=== PATIENT | female | born 1945 | race Asian ===

== ENCOUNTER 2023-07-21 09:13 | Inpatient (IN) | payer MEDICARE, MEDICAID ==
[2023-07-21] MEDS ORDERED: DOPamine/D5W 400 mg/250 ml PREMIX ONE (09:16)
[2023-07-21] MEDS ORDERED: Sodium Bicarb 50 MEQ/50 ML Abboject 8.4% SYRINGE ONE ×3 (09:16→12:02)
[2023-07-21] MEDS ORDERED: EPINEPHrine 1 MG/10 ML Abboject SYRINGE ONE (09:16)
[2023-07-21] MEDS ORDERED: Calcium Chloride 1 GM/10 ML Abboject SYRINGE ONE ×2 (09:16→10:33)
[2023-07-21] MEDS ORDERED: Atropine Sulfate 1 mg/10 ml Syringe ONE (09:16)
[2023-07-21] MEDS ORDERED: NOREPINEPHRINE 8 MG/250 ML-D5W 250 ML ONE (09:27)
[2023-07-21 10:17] LABS: Actual Bicarbonate (HCO3a) 16.2 mEq/L (22-28); Analyzer IN Cardio ER; Base Excess (BEa) -8.1 mEq/L (-2.0 to +3.0); Calcium, Ionized (arterial) 1.26 mmol/L (1.12-1.30); Carboxyhemoglobin (COHb) 0.3 gm% (0.0-3.0); Hematocrit-ABG 27 % (36.0-47.0); Hemoglobin (Hb) 9.1 g/dL (12.0-16.0); O2 Tension (PaO2), arterial 75.6 mmHg (> 70.0); Potassium - ABG Lab 5.67 mmol/L (3.70-5.30); pH, Arterial 7.365 (7.35-7.45)
[2023-07-21 10:19] LABS: Puncture Site A-Line
[2023-07-21 10:19] LABS: Acetaminophen Less than 10 mcg/mL (10.0-30.0); Alcohol Less than 10.0 mg/dL (Less than 10); Salicylate Less than 8.0 mg/dL (15.0-30.0)
[2023-07-21 10:23] LABS: ALT (SGPT) 36 U/L (8-55); AST (SGOT) 29 U/L (5-34); Albumin 2.5 g/dL (3.4-4.8); Alkaline Phosphatase 48 U/L (40-110); Anion Gap 16 mmol/L (10-20); BUN (Urea Nitrogen) 67 mg/dL (9.8-20.1); Bilirubin, Total 0.3 mg/dL (0.2-1.2); Calc. Creatinine Clearance 0 mL/min (70-130); Calcium 6.7 mg/dL (7.8-10.44); Carbon Dioxide 10 mmol/L (23-31); Chloride 99 mmol/L (98-107); Estimated GFR 10; Globulin 2.3 g/dL (2.4-3.5); Glucose 315 mg/dL (83-110); Magnesium 1.8 mg/dL (1.6-2.6); Potassium 6.2 mmol/L (3.5-5.1); Protein, Total 4.8 g/dL (5.8-8.1); Sodium 119 mmol/L (136-145)
[2023-07-21] MEDS ORDERED: Albuterol 2.5 MG (3 mL) NEB ONE (10:45)
[2023-07-21 10:46] LABS: #Basophils Less than 0.03 10x3/uL (0.0-0.2); %Basophils 0.1 % (0.0-1.0); %Eosinophils 0.8 % (0.0-10.0); %Monocytes 6.5 % (0.0-10.0); %Neutrophils 76.1 % (42.0-75.0); Hematocrit 24.9 % (36.0-47.0); Hemoglobin 8.7 g/dL (12.0-16.0); Mean Corpuscular HGB CONC 34.9 g/dL (32.0-36.0); Mean Corpuscular Hemoglobin 31.9 pg (27.0-31.0); Mean Corpuscular Volume 91.2 fL (78.0-98.0); Mean Platelet Volume 9.7 fL (7.4-10.4); Platelet Count 160 10x3/uL (130-400); Red Blood Cell (RBC) Count 2.73 mill/uL (4.20-5.40)
[2023-07-21 11:12] LABS: Digoxin Less than 0.19 ng/mL (0.8-2.0); INR-International Normal Ratio 1.3; PTT 30.7 sec (22.9-36.1); Prothrombin Time 16.1 sec (12.0-14.7)
[2023-07-21] MEDS ORDERED: Insulin Regular, Human 100 UNIT/ML 10 ML VIAL ONE (11:32)
[2023-07-21 11:38] LABS: Troponin I 0.044 ng/mL (< 0.028)
[2023-07-21 11:56] LABS: Bacteria/HPF 2+ HPF (None Seen); Bilirubin Negative (Negative); Blood, Urine 1+ (Negative); CAUTI Indications for Culture Alt mental st,lethar; Clarity Turbid (Clear); Glucose, Urine (Dipstick) Greater than 1000 mg/dL (Negative); Ketone, Urine Negative (Negative); Leukocyte 500 Leu/uL (Negative); Nitrite Negative (Negative); Protein, Urine (Dipstick) 200 mg/dL (Neg-Trace); Specific Gravity, Urine 1.013 (1.002-1.036); Squamous Epithelial 0-3 HPF (0-3); Urobilinogen Normal mg/dL (Less than 2); WBC/HPF Greater than 50 HPF (0-3); pH, Urine 6.5 (5.0-9.0)
[2023-07-21] MEDS ORDERED: Furosemide 40 MG (4 mL) VIAL ONE (11:59)
[2023-07-21 12:01] LABS: Analyzer IN Cardio ER; Base Excess (BEa) -5.6 mEq/L (-2.0 to +3.0); CO2 Tension 20.5 mmHg (35.0-45.0); Calcium, Ionized (arterial) 1.27 mmol/L (1.12-1.30); Carboxyhemoglobin (COHb) 0.3 gm% (0.0-3.0); Hematocrit-ABG 29 % (36.0-47.0); Hemoglobin (Hb) 9.7 g/dL (12.0-16.0); O2 Tension (PaO2), arterial 179.7 mmHg (> 70.0); Potassium - ABG Lab 4.65 mmol/L (3.70-5.30)
[2023-07-21 12:01] LABS: Amphetamine Not Detected (NotDetected); Barbiturates Screen Not Detected (NotDetected); Benzodiazepine Screen Not Detected (NotDetected); Cocaine Metabolite Screen Not Detected (NotDetected); Methadone Not Detected (NotDetected); Methamphetamine Not Detected (NotDetected); Opiate Screen Not Detected (NotDetected); Oxycodone Screen Not Detected (NotDetected); Phencyclidine (PCP) Not Detected (NotDetected); THC/Cannabinoid Screen Not Detected (NotDetected); Tricyclic Screen Not Detected (NotDetected); Urine Culture Reflex Yes Yes
[2023-07-21] MEDS ORDERED: Sodium Bicarb 50 mEq/50 ML VIAL ONE (12:09)
[2023-07-21 12:33] LABS: Influenza A by NAA Not Detected (NotDetected); Influenza B by NAA Not Detected (NotDetected); SARS-CoV-2 NAA Rapid Test Not Detected (NotDetected)
[2023-07-21 13:00] LABS: ALT (SGPT) 146 U/L (8-55); AST (SGOT) 183 U/L (5-34); Albumin 2.9 g/dL (3.4-4.8); Alkaline Phosphatase 73 U/L (40-110); Anion Gap 18 mmol/L (10-20); BUN (Urea Nitrogen) 66 mg/dL (9.8-20.1); Bilirubin, Total 0.6 mg/dL (0.2-1.2); Calc. Creatinine Clearance 0 mL/min (70-130); Calcium 9.9 mg/dL (7.8-10.44); Carbon Dioxide 15 mmol/L (23-31); Chloride 99 mmol/L (98-107); Estimated GFR 11; Globulin 2.7 g/dL (2.4-3.5); Glucose 278 mg/dL (83-110); Potassium 4.5 mmol/L (3.5-5.1); Protein, Total 5.6 g/dL (5.8-8.1); Sodium 127 mmol/L (136-145)
[2023-07-21] MEDS ORDERED: Dextrose 5% in Water 1,000 ML IV PRN (13:26)
[2023-07-21] MEDS ORDERED: Dextrose 50% Abboject 50 ML SYRINGE SLOW IVP PRN (13:26)
[2023-07-21] MEDS ORDERED: Glucagon 1 MG/ML KIT IM PRN (13:26)
[2023-07-21] MEDS ORDERED: Ipratropium/Albuterol 3 ML NEB NEB PRN (13:27)
[2023-07-21] MEDS ORDERED: Ventilator Sedation Protocol 1 EACH FS SCH (13:30)
[2023-07-21] MEDS ORDERED: DISCONTINUE PREVIOUS NARCOTIC PAIN MEDICATIONS AND BENZODIAZEPINES FS SCH (14:00)
[2023-07-21] MEDS: Meropenem 1 GM in Sodium Chloride 0.9% 100 ML IVPB SCH (14:00)
[2023-07-21] MEDS ORDERED: Propofol BOLUS 1,000 MG/100 ML VIAL IV PRN (14:00)
[2023-07-21] MEDS ORDERED: Fentanyl BOLUS 250 ML IVPB PRN (14:00)
[2023-07-21] MEDS ORDERED: Lorazepam 2 MG/ML VIAL SLOW IVP PRN (14:00)
[2023-07-21] MEDS: Albumin 25% 25 GM (100 mL) BOT IVPB SCH (14:11)
[2023-07-21] MEDS: Pantoprazole 40 MG VIAL IVP SCH ×2 (14:12→20:03)
[2023-07-21] MEDS: Lactated Ringer's 1,000 ML IV SCH (14:14)
[2023-07-21 14:16] LABS: Lactic Acid 2.6 mmol/L (0.5-2.2)
[2023-07-21] MEDS: Fentanyl CADD 100 ML IV SCH (15:34)
[2023-07-21] MEDS: Propofol 1,000 MG/100 ML VIAL IV PRN (18:04)
[2023-07-21 21:39] LABS: Anion Gap 16 mmol/L (10-20); BUN (Urea Nitrogen) 62 mg/dL (9.8-20.1); Calc. Creatinine Clearance 10 mL/min (70-130); Calcium 8.8 mg/dL (7.8-10.44); Carbon Dioxide 19 mmol/L (23-31); Chloride 98 mmol/L (98-107); Estimated GFR 11; Glucose 187 mg/dL (83-110); Potassium 5.2 mmol/L (3.5-5.1); Sodium 128 mmol/L (136-145)
[2023-07-21 21:46] LABS: Troponin I 0.114 ng/mL (< 0.028)
[2023-07-21] MEDS: EPOETIN ALFA-EPBX (ESRD) 10,000 UNITS/ML VIAL SC SCH (22:12)
[2023-07-22 04:17] LABS: #Basophils Less than 0.03 10x3/uL (0.0-0.2); #Eosinphils Less than 0.03 10x3/uL (0.0-0.7); %Basophils 0.1 % (0.0-1.0); %Eosinophils 0.1 % (0.0-10.0); %Lymphocytes 9.8 % (21.0-51.0); %Monocytes 7.2 % (0.0-10.0); %Neutrophils 82.4 % (42.0-75.0); Hematocrit 19.7 % (36.0-47.0); Hemoglobin 6.9 g/dL (12.0-16.0); Mean Corpuscular Hemoglobin 31.9 pg (27.0-31.0); Mean Corpuscular Volume 91.2 fL (78.0-98.0); Mean Platelet Volume 9.1 fL (7.4-10.4); Platelet Count 131 10x3/uL (130-400); RBC Distribution Width 14.1 % (11.5-14.5); Red Blood Cell (RBC) Count 2.16 mill/uL (4.20-5.40)
[2023-07-22 05:19] LABS: ALT (SGPT) 73 U/L (8-55); AST (SGOT) 47 U/L (5-34); Albumin 3.6 g/dL (3.4-4.8); Alkaline Phosphatase 43 U/L (40-110); Anion Gap 18 mmol/L (10-20); BUN (Urea Nitrogen) 63 mg/dL (9.8-20.1); Bilirubin, Total 0.5 mg/dL (0.2-1.2); Calc. Creatinine Clearance 10 mL/min (70-130); Calcium 8.4 mg/dL (7.8-10.44); Carbon Dioxide 20 mmol/L (23-31); Chloride 96 mmol/L (98-107); Estimated GFR 11; Globulin 1.7 g/dL (2.4-3.5); Glucose 124 mg/dL (83-110); Protein, Total 5.3 g/dL (5.8-8.1); Sodium 129 mmol/L (136-145)
[2023-07-22 07:35] LABS: Actual Bicarbonate (HCO3a) 21.8 mEq/L (22-28); Base Excess (BEa) -3.4 mEq/L (-2.0 to +3.0); CO2 Tension 40.1 mmHg (35.0-45.0); Calcium, Ionized (arterial) 1.07 mmol/L (1.12-1.30); Carboxyhemoglobin (COHb) 0.1 gm% (0.0-3.0); Hematocrit-ABG 23 % (36.0-47.0); Hemoglobin (Hb) 7.7 g/dL (12.0-16.0); O2 Tension (PaO2), arterial 67.6 mmHg (> 70.0); Potassium - ABG Lab 4.88 mmol/L (3.70-5.30); pH, Arterial 7.354 (7.35-7.45)
[2023-07-22 07:39] LABS: ALV-art Gradient 167.475 mmHg (0-20); Puncture Site RRA
[2023-07-22] MEDS ORDERED: VANC IVPB PRN (08:31)
[2023-07-22] MEDS ORDERED: MERREM IVPB PRN (08:31)
[2023-07-22] MEDS ORDERED: Vancomycin Dose by Levels Sliding Scale (Wt <71) FS SCH (08:45)
[2023-07-22] MEDS ORDERED: Vancomycin 1 GM in Premix 1 BAG IVPB SCH (09:00)
[2023-07-22] MEDS: Heparin 5,000 UNITS/ML VIAL SC SCH (09:05)
[2023-07-22] MEDS: Meropenem 1 GM in Sodium Chloride 0.9% 100 ML IVPB SCH (09:07)
[2023-07-22] MEDS: Vancomycin (BATCH) 1.25 GM in Premix 1 BAG IVPB SCH (09:09)
[2023-07-22] MEDS: NOREPINEPHRINE 8 MG/250 ML-D5W 250 ML IVPB PRN (16:09)
[2023-07-22] MEDS: Meropenem 500 MG in Sodium Chloride 0.9% 100 ML IVPB SCH (16:09)
[2023-07-22 21:57] LABS: Hematocrit 27.2 % (36.0-47.0); Hemoglobin 9.7 g/dL (12.0-16.0)
[2023-07-23 05:09] LABS: #Basophils 0.05 10x3/uL (0.0-0.2); %Basophils 0.4 % (0.0-1.0); %Eosinophils 3.4 % (0.0-10.0); %Lymphocytes 14.8 % (21.0-51.0); %Monocytes 8.5 % (0.0-10.0); %Neutrophils 72.4 % (42.0-75.0); Hematocrit 28.6 % (36.0-47.0); Hemoglobin 9.9 g/dL (12.0-16.0); Mean Corpuscular HGB CONC 34.6 g/dL (32.0-36.0); Mean Corpuscular Hemoglobin 31.5 pg (27.0-31.0); Mean Corpuscular Volume 91.1 fL (78.0-98.0); Mean Platelet Volume 9.6 fL (7.4-10.4); Platelet Count 132 10x3/uL (130-400); RBC Distribution Width 14.9 % (11.5-14.5); Red Blood Cell (RBC) Count 3.14 mill/uL (4.20-5.40)
[2023-07-23 05:39] LABS: ALT (SGPT) 46 U/L (8-55); AST (SGOT) 48 U/L (5-34); Albumin 3.4 g/dL (3.4-4.8); Alkaline Phosphatase 45 U/L (40-110); Anion Gap 16 mmol/L (10-20); BUN (Urea Nitrogen) 69 mg/dL (9.8-20.1); Calc. Creatinine Clearance 12 mL/min (70-130); Calcium 7.8 mg/dL (7.8-10.44); Carbon Dioxide 20 mmol/L (23-31); Chloride 98 mmol/L (98-107); Estimated GFR 12; Globulin 1.8 g/dL (2.4-3.5); Glucose 89 mg/dL (83-110); Potassium 4.8 mmol/L (3.5-5.1); Protein, Total 5.2 g/dL (5.8-8.1); Sodium 129 mmol/L (136-145)
[2023-07-23 07:57] LABS: Base Excess (BEa) -6.4 mEq/L (-2.0 to +3.0); CO2 Tension 43.7 mmHg (35.0-45.0); Calcium, Ionized (arterial) 1.05 mmol/L (1.12-1.30); Carboxyhemoglobin (COHb) 0.4 gm% (0.0-3.0); Hematocrit-ABG 31 % (36.0-47.0); Hemoglobin (Hb) 10.7 g/dL (12.0-16.0); O2 Tension (PaO2), arterial 73.6 mmHg (> 70.0); Potassium - ABG Lab 4.75 mmol/L (3.70-5.30); pH, Arterial 7.279 (7.35-7.45)
[2023-07-23 07:59] LABS: ALV-art Gradient 156.975 mmHg (0-20); Puncture Site RRA
[2023-07-23 10:14] LABS: Vancomycin, Trough 13.6 ug/mL
[2023-07-23] MEDS: Vancomycin HCl 500 MG in Sodium Chloride 0.9% 100 ML IV SCH (12:00)
[2023-07-24 04:56] LABS: #Basophils 0.03 10x3/uL (0.0-0.2); %Basophils 0.2 % (0.0-1.0); %Eosinophils 4.3 % (0.0-10.0); %Lymphocytes 14.7 % (21.0-51.0); %Monocytes 8.5 % (0.0-10.0); %Neutrophils 71.8 % (42.0-75.0); Hematocrit 29.3 % (36.0-47.0); Hemoglobin 10.3 g/dL (12.0-16.0); Mean Corpuscular HGB CONC 35.2 g/dL (32.0-36.0); Mean Corpuscular Hemoglobin 32.4 pg (27.0-31.0); Mean Corpuscular Volume 92.1 fL (78.0-98.0); Mean Platelet Volume 9.2 fL (7.4-10.4); Platelet Count 130 10x3/uL (130-400); RBC Distribution Width 14.6 % (11.5-14.5); Red Blood Cell (RBC) Count 3.18 mill/uL (4.20-5.40)
[2023-07-24 05:19] LABS: ALT (SGPT) 38 U/L (8-55); AST (SGOT) 41 U/L (5-34); Albumin 2.7 g/dL (3.4-4.8); Alkaline Phosphatase 45 U/L (40-110); Anion Gap 16 mmol/L (10-20); BUN (Urea Nitrogen) 73 mg/dL (9.8-20.1); Bilirubin, Total 0.7 mg/dL (0.2-1.2); Calc. Creatinine Clearance 14 mL/min (70-130); Carbon Dioxide 19 mmol/L (23-31); Chloride 100 mmol/L (98-107); Estimated GFR 14; Globulin 2.1 g/dL (2.4-3.5); Glucose 89 mg/dL (83-110); Potassium 4.6 mmol/L (3.5-5.1); Protein, Total 4.8 g/dL (5.8-8.1); Sodium 130 mmol/L (136-145)
[2023-07-24] MEDS: cefTRIAXone\\ROCEPHIN 1 GM in Sodium Chloride 0.9% 100 ML IVPB SCH (12:35)
[2023-07-24] MEDS: Acetaminophen 650 MG/20.3 ML UDCUP PO PRN (14:24)
[2023-07-25 07:21] LABS: Actual Bicarbonate (HCO3a) 20.2 mEq/L (22-28); Base Excess (BEa) -5.2 mEq/L (-2.0 to +3.0); CO2 Tension 38.8 mmHg (35.0-45.0); Calcium, Ionized (arterial) 1.09 mmol/L (1.12-1.30); Carboxyhemoglobin (COHb) 0.1 gm% (0.0-3.0); Hematocrit-ABG 31 % (36.0-47.0); Hemoglobin (Hb) 10.6 g/dL (12.0-16.0); O2 Tension (PaO2), arterial 95.2 mmHg (> 70.0); Potassium - ABG Lab 4.61 mmol/L (3.70-5.30); pH, Arterial 7.334 (7.35-7.45)
[2023-07-25 07:22] LABS: Puncture Site RRA
[2023-07-25 09:49] LABS: #Basophils Less than 0.03 10x3/uL (0.0-0.2); %Basophils 0.2 % (0.0-1.0); %Lymphocytes 11.1 % (21.0-51.0); %Monocytes 10.7 % (0.0-10.0); %Neutrophils 72.5 % (42.0-75.0); Hematocrit 28.9 % (36.0-47.0); Hemoglobin 9.9 g/dL (12.0-16.0); Mean Corpuscular HGB CONC 34.3 g/dL (32.0-36.0); Mean Corpuscular Hemoglobin 31.9 pg (27.0-31.0); Mean Corpuscular Volume 93.2 fL (78.0-98.0); Mean Platelet Volume 9.2 fL (7.4-10.4); Platelet Count 137 10x3/uL (130-400); RBC Distribution Width 14.6 % (11.5-14.5)
[2023-07-25 10:07] LABS: ALT (SGPT) 30 U/L (8-55); AST (SGOT) 30 U/L (5-34); Albumin 2.4 g/dL (3.4-4.8); Alkaline Phosphatase 41 U/L (40-110); Anion Gap 16 mmol/L (10-20); BUN (Urea Nitrogen) 78 mg/dL (9.8-20.1); Bilirubin, Total 0.6 mg/dL (0.2-1.2); Calc. Creatinine Clearance 15 mL/min (70-130); Calcium 8.1 mg/dL (7.8-10.44); Carbon Dioxide 17 mmol/L (23-31); Chloride 100 mmol/L (98-107); Estimated GFR 15; Globulin 2.4 g/dL (2.4-3.5); Glucose 143 mg/dL (83-110); Potassium 4.6 mmol/L (3.5-5.1); Protein, Total 4.8 g/dL (5.8-8.1); Sodium 128 mmol/L (136-145)
[2023-07-25 10:27] LABS: Anion Gap 16 mmol/L (10-20); BUN (Urea Nitrogen) 78 mg/dL (9.8-20.1); Calc. Creatinine Clearance 15 mL/min (70-130); Calcium 8.2 mg/dL (7.8-10.44); Carbon Dioxide 19 mmol/L (23-31); Chloride 99 mmol/L (98-107); Estimated GFR 15; Glucose 140 mg/dL (83-110); Potassium 4.6 mmol/L (3.5-5.1); Sodium 129 mmol/L (136-145)
[2023-07-25] MEDS: Hydrocortisone Sod Succ/PF 100 mg/2 ml Vial IVP SCH (12:35)
[2023-07-25] MEDS: Lactated Ringer's 500 ML IV SCH (12:41)
[2023-07-25] MEDS: Insulin Regular, Human 100 UNIT/ML 10 ML VIAL SC PRN (17:12)
[2023-07-26 00:43] VITALS: BMI 28.8
[2023-07-26 04:20] LABS: #Basophils Less than 0.03 10x3/uL (0.0-0.2); #Eosinphils Less than 0.03 10x3/uL (0.0-0.7); %Basophils 0.1 % (0.0-1.0); %Monocytes 7.6 % (0.0-10.0); %Neutrophils 81.8 % (42.0-75.0); Hematocrit 27.8 % (36.0-47.0); Hemoglobin 9.7 g/dL (12.0-16.0); Mean Corpuscular HGB CONC 34.9 g/dL (32.0-36.0); Mean Corpuscular Volume 91.7 fL (78.0-98.0); Mean Platelet Volume 9.3 fL (7.4-10.4); Platelet Count 149 10x3/uL (130-400); RBC Distribution Width 14.5 % (11.5-14.5); Red Blood Cell (RBC) Count 3.03 mill/uL (4.20-5.40)
[2023-07-26 04:44] LABS: ALT (SGPT) 22 U/L (8-55); AST (SGOT) 22 U/L (5-34); Albumin 2.4 g/dL (3.4-4.8); Alkaline Phosphatase 43 U/L (40-110); Anion Gap 16 mmol/L (10-20); BUN (Urea Nitrogen) 82 mg/dL (9.8-20.1); Bilirubin, Total 0.5 mg/dL (0.2-1.2); Calc. Creatinine Clearance 17 mL/min (70-130); Calcium 8.4 mg/dL (7.8-10.44); Carbon Dioxide 20 mmol/L (23-31); Chloride 102 mmol/L (98-107); Estimated GFR 17; Globulin 2.5 g/dL (2.4-3.5); Glucose 141 mg/dL (83-110); Potassium 4.6 mmol/L (3.5-5.1); Protein, Total 4.9 g/dL (5.8-8.1); Sodium 133 mmol/L (136-145)
[2023-07-26 07:32] LABS: ALV-art Gradient 167.725 mmHg (0-20); Actual Bicarbonate (HCO3a) 20.3 mEq/L (22-28); Base Excess (BEa) -3.7 mEq/L (-2.0 to +3.0); CO2 Tension 33.1 mmHg (35.0-45.0); Carboxyhemoglobin (COHb) 0.2 gm% (0.0-3.0); Hematocrit-ABG 31 % (36.0-47.0); Hemoglobin (Hb) 10.5 g/dL (12.0-16.0); O2 Tension (PaO2), arterial 76.1 mmHg (> 70.0); Potassium - ABG Lab 4.46 mmol/L (3.70-5.30); Puncture Site RRA; pH, Arterial 7.406 (7.35-7.45)
[2023-07-26] MEDS ORDERED: PROPOFOL 0 ML ONE (09:17)
[2023-07-26] MEDS ORDERED: Lidocaine 1% PF 5 ML VIAL ONE (09:17)
[2023-07-26] MEDS ORDERED: PROPOFOL 20 ML ONE (09:17)
[2023-07-26] MEDS: Glycopyrrolate 0.2 MG/ML 5 ML SYRINGE SLOW IVP SCH (16:37)
[2023-07-26] MEDS: Scopolamine 1 mg/72 hour Patch TD SCH (17:02)
[2023-07-27 04:08] LABS: #Basophils 0.04 10x3/uL (0.0-0.2); %Basophils 0.4 % (0.0-1.0); %Eosinophils 3.8 % (0.0-10.0); %Lymphocytes 11.6 % (21.0-51.0); %Monocytes 13.4 % (0.0-10.0); %Neutrophils 70.3 % (42.0-75.0); Hematocrit 30.7 % (36.0-47.0); Hemoglobin 10.4 g/dL (12.0-16.0); Mean Corpuscular HGB CONC 33.9 g/dL (32.0-36.0); Mean Corpuscular Hemoglobin 31.2 pg (27.0-31.0); Mean Corpuscular Volume 92.2 fL (78.0-98.0); Mean Platelet Volume 9.3 fL (7.4-10.4); Platelet Count 163 10x3/uL (130-400); RBC Distribution Width 14.5 % (11.5-14.5); Red Blood Cell (RBC) Count 3.33 mill/uL (4.20-5.40)
[2023-07-27 04:27] LABS: ALT (SGPT) 18 U/L (8-55); AST (SGOT) 24 U/L (5-34); Albumin 2.5 g/dL (3.4-4.8); Alkaline Phosphatase 40 U/L (40-110); Anion Gap 15 mmol/L (10-20); BUN (Urea Nitrogen) 78 mg/dL (9.8-20.1); Bilirubin, Total 0.5 mg/dL (0.2-1.2); Calc. Creatinine Clearance 18 mL/min (70-130); Calcium 8.5 mg/dL (7.8-10.44); Carbon Dioxide 20 mmol/L (23-31); Chloride 106 mmol/L (98-107); Estimated GFR 18; Globulin 2.7 g/dL (2.4-3.5); Glucose 73 mg/dL (83-110); Potassium 4.5 mmol/L (3.5-5.1); Protein, Total 5.2 g/dL (5.8-8.1); Sodium 136 mmol/L (136-145)
[2023-07-27] MEDS: Pantoprazole 40 MG VIAL IVP SCH (08:32)
[2023-07-27] MEDS: Furosemide 20 MG (2 mL) VIAL SLOW IVP SCH (14:40)
[2023-07-27] MEDS: Propofol 1,000 MG/100 ML VIAL IV ONE (14:41)
[2023-07-27] MEDS: Azithromycin 500 MG in Sodium Chloride 0.9% 250 ML 250 ML IVPB SCH (14:41)
[2023-07-28 05:33] LABS: ALT (SGPT) 16 U/L (8-55); AST (SGOT) 25 U/L (5-34); Albumin 2.7 g/dL (3.4-4.8); Alkaline Phosphatase 37 U/L (40-110); Anion Gap 20 mmol/L (10-20); BUN (Urea Nitrogen) 75 mg/dL (9.8-20.1); Bilirubin, Total 0.7 mg/dL (0.2-1.2); Calc. Creatinine Clearance 19 mL/min (70-130); Calcium 8.9 mg/dL (7.8-10.44); Carbon Dioxide 16 mmol/L (23-31); Chloride 108 mmol/L (98-107); Estimated GFR 19; Globulin 2.8 g/dL (2.4-3.5); Glucose 86 mg/dL (83-110); Potassium 4.7 mmol/L (3.5-5.1); Protein, Total 5.5 g/dL (5.8-8.1); Sodium 139 mmol/L (136-145)
[2023-07-28 05:48] LABS: #Basophils 0.03 10x3/uL (0.0-0.2); %Basophils 0.3 % (0.0-1.0); %Eosinophils 0.3 % (0.0-10.0); %Lymphocytes 9.5 % (21.0-51.0); %Monocytes 11.1 % (0.0-10.0); %Neutrophils 78.1 % (42.0-75.0); Hematocrit 31.9 % (36.0-47.0); Hemoglobin 10.6 g/dL (12.0-16.0); Mean Corpuscular HGB CONC 33.2 g/dL (32.0-36.0); Mean Corpuscular Hemoglobin 30.8 pg (27.0-31.0); Mean Corpuscular Volume 92.7 fL (78.0-98.0); Mean Platelet Volume 9.5 fL (7.4-10.4); Platelet Count 180 10x3/uL (130-400); RBC Distribution Width 14.2 % (11.5-14.5); Red Blood Cell (RBC) Count 3.44 mill/uL (4.20-5.40)
[2023-07-28] MEDS: Morphine 4 MG/ML VIAL SLOW IVP PRN (08:07)
[2023-07-28] MEDS: Sodium Bicarbonate Tab 325 MG TAB PO SCH (08:08)
[2023-07-28] MEDS: Furosemide 20 MG (2 mL) VIAL SLOW IVP SCH (09:47)
[2023-07-28] MEDS: Cefepime 1 GM in Sodium Chloride 0.9% 100 ML IVPB SCH (09:48)
[2023-07-28] MEDS: Carvedilol 6.25 MG TAB PO SCH ×2 (13:40→19:59)
[2023-07-28] MEDS ORDERED: Carvedilol 25 MG TAB PO SCH (17:00)
[2023-07-29 04:36] LABS: #Basophils Less than 0.03 10x3/uL (0.0-0.2); %Basophils 0.2 % (0.0-1.0); %Eosinophils 0.7 % (0.0-10.0); %Lymphocytes 12.7 % (21.0-51.0); %Monocytes 10.5 % (0.0-10.0); %Neutrophils 75.1 % (42.0-75.0); Hematocrit 30.2 % (36.0-47.0); Hemoglobin 10.1 g/dL (12.0-16.0); Mean Corpuscular HGB CONC 33.4 g/dL (32.0-36.0); Mean Corpuscular Hemoglobin 31.4 pg (27.0-31.0); Mean Corpuscular Volume 93.8 fL (78.0-98.0); Mean Platelet Volume 9.4 fL (7.4-10.4); Platelet Count 176 10x3/uL (130-400); RBC Distribution Width 14.2 % (11.5-14.5); Red Blood Cell (RBC) Count 3.22 mill/uL (4.20-5.40)
[2023-07-29 05:00] LABS: ALT (SGPT) 12 U/L (8-55); AST (SGOT) 19 U/L (5-34); Albumin 2.5 g/dL (3.4-4.8); Alkaline Phosphatase 33 U/L (40-110); Anion Gap 19 mmol/L (10-20); BUN (Urea Nitrogen) 74 mg/dL (9.8-20.1); Bilirubin, Total 0.6 mg/dL (0.2-1.2); Calc. Creatinine Clearance 18 mL/min (70-130); Calcium 8.7 mg/dL (7.8-10.44); Carbon Dioxide 18 mmol/L (23-31); Chloride 107 mmol/L (98-107); Estimated GFR 19; Globulin 2.7 g/dL (2.4-3.5); Glucose 169 mg/dL (83-110); Potassium 4.2 mmol/L (3.5-5.1); Protein, Total 5.2 g/dL (5.8-8.1); Sodium 140 mmol/L (136-145)
[2023-07-29] MEDS: Amlodipine 5 MG TAB PO SCH (08:56)
[2023-07-29] MEDS: Losartan 25 MG TAB PO SCH (08:57)
[2023-07-29] MEDS: Furosemide 100 MG (10 mL) VIAL SLOW IVP SCH (16:06)
[2023-07-30 06:30] LABS: #Basophils Less than 0.03 10x3/uL (0.0-0.2); %Basophils 0.1 % (0.0-1.0); %Eosinophils 1.6 % (0.0-10.0); %Lymphocytes 12.8 % (21.0-51.0); %Monocytes 10.8 % (0.0-10.0); %Neutrophils 73.8 % (42.0-75.0); Hematocrit 31.3 % (36.0-47.0); Hemoglobin 10.8 g/dL (12.0-16.0); Mean Corpuscular HGB CONC 34.5 g/dL (32.0-36.0); Mean Corpuscular Volume 92.9 fL (78.0-98.0); Mean Platelet Volume 9.8 fL (7.4-10.4); Platelet Count 209 10x3/uL (130-400); RBC Distribution Width 14.1 % (11.5-14.5); Red Blood Cell (RBC) Count 3.37 mill/uL (4.20-5.40)
[2023-07-30 06:56] LABS: ALT (SGPT) 16 U/L (8-55); AST (SGOT) 21 U/L (5-34); Albumin 2.5 g/dL (3.4-4.8); Alkaline Phosphatase 34 U/L (40-110); Anion Gap 19 mmol/L (10-20); BUN (Urea Nitrogen) 72 mg/dL (9.8-20.1); Bilirubin, Total 0.6 mg/dL (0.2-1.2); Calc. Creatinine Clearance 21 mL/min (70-130); Calcium 8.8 mg/dL (7.8-10.44); Carbon Dioxide 21 mmol/L (23-31); Chloride 106 mmol/L (98-107); Estimated GFR 22; Glucose 184 mg/dL (83-110); Potassium 3.6 mmol/L (3.5-5.1); Protein, Total 5.5 g/dL (5.8-8.1); Sodium 142 mmol/L (136-145)
[2023-07-30] MEDS: Polyethylene Glycol 3350 17 GM Packet PO SCH (11:06)
[2023-07-30] MEDS: Furosemide 100 MG (10 mL) VIAL SLOW IVP SCH (16:02)
[2023-07-30] MEDS: Ipratropium/Albuterol 3 ML NEB NEB SCH (18:41)
[2023-07-30] MEDS ORDERED: hydrALAZINE 20 MG/ML VIAL SLOW IVP PRN (18:48)
[2023-07-31] MEDS: Polyethylene Glycol 3350 17 GM Packet PO SCH (07:32)
[2023-07-31] MEDS: Naloxegol 12.5 MG TAB PO SCH (07:32)
[2023-07-31] MEDS: Insulin Glargine 30 UNITS/0.3 ML VIAL SC SCH (20:44)
[2023-08-01 04:59] LABS: Anion Gap 17 mmol/L (10-20); BUN (Urea Nitrogen) 69 mg/dL (9.8-20.1); Calc. Creatinine Clearance 22 mL/min (70-130); Calcium 8.4 mg/dL (7.8-10.44); Carbon Dioxide 28 mmol/L (23-31); Chloride 102 mmol/L (98-107); Estimated GFR 26; Glucose 145 mg/dL (83-110); Potassium 3.5 mmol/L (3.5-5.1); Sodium 143 mmol/L (136-145)
[2023-08-02 04:39] LABS: #Basophils 0.03 10x3/uL (0.0-0.2); %Basophils 0.4 % (0.0-1.0); %Eosinophils 3.5 % (0.0-10.0); %Lymphocytes 23.2 % (21.0-51.0); %Monocytes 8.2 % (0.0-10.0); %Neutrophils 64.1 % (42.0-75.0); Hematocrit 31.2 % (36.0-47.0); Hemoglobin 10.5 g/dL (12.0-16.0); Mean Corpuscular HGB CONC 33.7 g/dL (32.0-36.0); Mean Corpuscular Hemoglobin 31.3 pg (27.0-31.0); Mean Corpuscular Volume 92.9 fL (78.0-98.0); Mean Platelet Volume 10.2 fL (7.4-10.4); Platelet Count 236 10x3/uL (130-400); RBC Distribution Width 14.4 % (11.5-14.5); Red Blood Cell (RBC) Count 3.36 mill/uL (4.20-5.40)
[2023-08-02 05:04] LABS: Anion Gap 15 mmol/L (10-20); BUN (Urea Nitrogen) 74 mg/dL (9.8-20.1); Calc. Creatinine Clearance 24 mL/min (70-130); Carbon Dioxide 28 mmol/L (23-31); Chloride 101 mmol/L (98-107); Potassium 3.7 mmol/L (3.5-5.1); Sodium 140 mmol/L (136-145)
[2023-08-02 05:05] LABS: Calcium 8.4 mg/dL (7.8-10.44); Estimated GFR 29; Glucose 147 mg/dL (83-110)
[2023-08-02] MEDS: Furosemide 100 MG (10 mL) VIAL SLOW IVP SCH (08:31)
[2023-08-02] MEDS: methylPREDNISolone Sod Succ 40 MG VIAL IVP SCH (09:33)
[2023-08-03 05:02] LABS: Anion Gap 14 mmol/L (10-20); BUN (Urea Nitrogen) 83 mg/dL (9.8-20.1); Calc. Creatinine Clearance 22 mL/min (70-130); Calcium 8.8 mg/dL (7.8-10.44); Carbon Dioxide 29 mmol/L (23-31); Chloride 99 mmol/L (98-107); Estimated GFR 26; Glucose 247 mg/dL (83-110); Potassium 3.9 mmol/L (3.5-5.1); Sodium 138 mmol/L (136-145)
[2023-08-03] MEDS: Amlodipine 10 MG TAB PO SCH (08:43)
[2023-08-03] MEDS: Furosemide 100 MG (10 mL) VIAL SLOW IVP SCH (08:44)
[2023-08-04] MEDS: methylPREDNISolone Sod Succ 40 MG VIAL IVP SCH (03:03)
[2023-08-04 04:30] LABS: Anion Gap 18 mmol/L (10-20); BUN (Urea Nitrogen) 86 mg/dL (9.8-20.1); Calc. Creatinine Clearance 20 mL/min (70-130); Carbon Dioxide 29 mmol/L (23-31); Chloride 98 mmol/L (98-107); Estimated GFR 24; Glucose 182 mg/dL (83-110); Potassium 3.5 mmol/L (3.5-5.1); Sodium 141 mmol/L (136-145)
[2023-08-05] MEDS: Furosemide 40 MG (4 mL) VIAL SLOW IVP SCH (08:27)
[2023-08-05] MEDS: NIFEdipine XL 90 MG ER.TAB PO SCH (09:12)
[2023-08-05 16:36] LABS: #Basophils 0.04 10x3/uL (0.0-0.2); #Eosinphils Less than 0.03 10x3/uL (0.0-0.7); %Basophils 0.4 % (0.0-1.0); %Eosinophils 0.1 % (0.0-10.0); %Lymphocytes 17.4 % (21.0-51.0); %Monocytes 16.7 % (0.0-10.0); %Neutrophils 62.5 % (42.0-75.0); Hematocrit 40.5 % (36.0-47.0); Hemoglobin 13.6 g/dL (12.0-16.0); Mean Corpuscular HGB CONC 33.6 g/dL (32.0-36.0); Mean Corpuscular Hemoglobin 30.9 pg (27.0-31.0); Mean Platelet Volume 10.3 fL (7.4-10.4); Platelet Count 337 10x3/uL (130-400); RBC Distribution Width 14.7 % (11.5-14.5)
[2023-08-05 16:47] LABS: Anion Gap 19 mmol/L (10-20); BUN (Urea Nitrogen) 79 mg/dL (9.8-20.1); Calc. Creatinine Clearance 20 mL/min (70-130); Calcium 9.1 mg/dL (7.8-10.44); Carbon Dioxide 28 mmol/L (23-31); Chloride 101 mmol/L (98-107); Estimated GFR 23; Glucose 299 mg/dL (83-110); Potassium 3.5 mmol/L (3.5-5.1); Sodium 144 mmol/L (136-145)
[2023-08-06 05:05] LABS: Anion Gap 14 mmol/L (10-20); BUN (Urea Nitrogen) 74 mg/dL (9.8-20.1); Calc. Creatinine Clearance 21 mL/min (70-130); Calcium 9.1 mg/dL (7.8-10.44); Carbon Dioxide 32 mmol/L (23-31); Chloride 103 mmol/L (98-107); Estimated GFR 25; Glucose 67 mg/dL (83-110); Sodium 146 mmol/L (136-145)
[2023-08-06] MEDS: Furosemide 40 MG (4 mL) VIAL SLOW IVP SCH (07:04)
[2023-08-06] MEDS: methylPREDNISolone Sod Succ 40 MG VIAL IVP SCH (10:04)
[2023-08-06] MEDS: Potassium Chloride 20 MEQ TAB PO SCH (11:12)
[2023-08-06] MEDS: Sodium Chloride 0.9% 500 ML IV SCH (23:39)
[2023-08-06 23:45] LABS: Glucose 648 mg/dL (83-110)
[2023-08-07] MEDS: Insulin Regular, Human 100 UNIT/ML 10 ML VIAL IVP SCH ×2 (00:50→01:42)
[2023-08-07] MEDS ORDERED: Electrolyte Replacement Protocol 1 EACH FS SCH (04:00)
[2023-08-07] MEDS: HumaLOG 300 UNITS/3 ML VIAL SC PRN (04:13)
[2023-08-07] MEDS: Sodium Chloride 0.9% 500 ML IV SCH (04:19)
[2023-08-07 04:51] LABS: Anion Gap 19 mmol/L (10-20); BUN (Urea Nitrogen) 80 mg/dL (9.8-20.1); Calc. Creatinine Clearance 16 mL/min (70-130); Calcium 8.3 mg/dL (7.8-10.44); Carbon Dioxide 26 mmol/L (23-31); Chloride 102 mmol/L (98-107); Estimated GFR 19; Glucose 538 mg/dL (83-110); Magnesium 2.2 mg/dL (1.6-2.6); Potassium 2.7 mmol/L (3.5-5.1); Sodium 144 mmol/L (136-145)
[2023-08-07] MEDS: Potassium Chloride 20 MEQ in Premix 1 BAG IVPB SCH ×3 (09:55→16:35)
[2023-08-07 10:16] VITALS: BMI 25.4
[2023-08-07] MEDS ORDERED: Potassium Chloride 40 MEQ in Premix 1 BAG IVPB SCH (12:15)
[2023-08-07] MEDS: Sodium Bicarbonate Tab 325 MG TAB PO SCH (18:35)
[2023-08-07] MEDS: Insulin Glargine 30 UNITS/0.3 ML VIAL SC SCH (21:23)
[2023-08-08 03:56] LABS: #Basophils Less than 0.03 10x3/uL (0.0-0.2); #Eosinphils Less than 0.03 10x3/uL (0.0-0.7); %Basophils 0.1 % (0.0-1.0); %Lymphocytes 21.5 % (21.0-51.0); %Monocytes 9.9 % (0.0-10.0); %Neutrophils 67.8 % (42.0-75.0); Hematocrit 32.8 % (36.0-47.0); Hemoglobin 10.8 g/dL (12.0-16.0); Mean Corpuscular HGB CONC 32.9 g/dL (32.0-36.0); Mean Corpuscular Hemoglobin 30.7 pg (27.0-31.0); Mean Corpuscular Volume 93.2 fL (78.0-98.0); Mean Platelet Volume 9.9 fL (7.4-10.4); Platelet Count 300 10x3/uL (130-400); RBC Distribution Width 15.3 % (11.5-14.5); Red Blood Cell (RBC) Count 3.52 mill/uL (4.20-5.40)
[2023-08-08 04:20] LABS: Anion Gap 17 mmol/L (10-20); BUN (Urea Nitrogen) 74 mg/dL (9.8-20.1); Calc. Creatinine Clearance 18 mL/min (70-130); Calcium 8.2 mg/dL (7.8-10.44); Carbon Dioxide 27 mmol/L (23-31); Chloride 103 mmol/L (98-107); Estimated GFR 21; Glucose 127 mg/dL (83-110); Potassium 4.4 mmol/L (3.5-5.1); Sodium 143 mmol/L (136-145)
[2023-08-08] MEDS: Insulin Lispro 100 UNIT/ML 10 ML VIAL SC PRN (16:52)
[2023-08-09 05:10] LABS: Anion Gap 16 mmol/L (10-20); Calc. Creatinine Clearance 18 mL/min (70-130); Calcium 8.2 mg/dL (7.8-10.44); Carbon Dioxide 26 mmol/L (23-31); Chloride 103 mmol/L (98-107); Estimated GFR 21; Glucose 93 mg/dL (83-110); Potassium 3.9 mmol/L (3.5-5.1); Sodium 141 mmol/L (136-145)
[2023-08-09 05:26] LABS: BUN (Urea Nitrogen) 68 mg/dL (9.8-20.1)
[2023-08-09] MEDS: Atorvastatin Calcium 20 MG TAB PO SCH (08:41)
[2023-08-09] MEDS: predniSONE 20 MG TAB PO SCH (08:42)
[2023-08-09] MEDS: Pantoprazole DR 40 MG TAB PO SCH (08:42)
[2023-08-09] MEDS: Empagliflozin 10 MG TAB PO SCH (08:42)
[2023-08-09] MEDS ORDERED: Insulin Lispro 100 UNIT/ML 10 ML VIAL SC PRN (08:42)
[2023-08-09 15:39] VITALS: TEMP 98.1
[2023-08-09] MEDS: Insulin Lispro 100 UNIT/ML 10 ML VIAL SC PRN (16:19)
[2023-08-09 16:24] VITALS: BP 119/63
== END 2023-08-09 18:51 | DRG 870 ==
LOC: ERS 09:13 → CCU 12:07 → T4-A 08-04 15:08 → 2NO 08-05 11:10
PROVIDERS: ADMIT Internal Medicine; ATTEND Internal Medicine
PROC: 0BH17EZ Insertion of Endotracheal Airway into Trachea, Via Natural or Artificial Opening (ICD-10-PCS; principal; 2023-07-21)
PROC: 5A1955Z Respiratory Ventilation, Greater than 96 Consecutive Hours (ICD-10-PCS; 2023-07-21)
PROC: 4A133R1 Monitoring of Arterial Saturation, Peripheral, Percutaneous Approach (ICD-10-PCS; 2023-07-21)
PROC: 30233J1 Transfusion of Nonautologous Serum Albumin into Peripheral Vein, Percutaneous Approach (ICD-10-PCS; 2023-07-21)
PROC: 30233N1 Transfusion of Nonautologous Red Blood Cells into Peripheral Vein, Percutaneous Approach (ICD-10-PCS; 2023-07-22)
PROC: 0DB68ZX Excision of Stomach, Via Natural or Artificial Opening Endoscopic, Diagnostic (ICD-10-PCS; 2023-07-26)
DX: A41.4 Sepsis due to anaerobes (principal); G93.41 Metabolic encephalopathy; J18.9 Pneumonia, unspecified organism; J96.01 Acute respiratory failure with hypoxia; J69.0 Pneumonitis due to inhalation of food and vomit; R65.21 Severe sepsis with septic shock; N17.9 Acute kidney failure, unspecified; I13.0 Hypertensive heart and chronic kidney disease with heart failure and stage 1 through stage 4 chronic kidney disease, or unspecified chronic kidney disease; N18.4 Chronic kidney disease, stage 4 (severe); N39.0 Urinary tract infection, site not specified; E87.20 Acidosis, unspecified; E87.1 Hypo-osmolality and hyponatremia; I42.9 Cardiomyopathy, unspecified; I50.22 Chronic systolic (congestive) heart failure; R00.1 Bradycardia, unspecified; E87.5 Hyperkalemia; I48.0 Paroxysmal atrial fibrillation; I25.10 Atherosclerotic heart disease of native coronary artery without angina pectoris; E11.22 Type 2 diabetes mellitus with diabetic chronic kidney disease; E88.09 Other disorders of plasma-protein metabolism, not elsewhere classified; K94.21 Gastrostomy hemorrhage; D64.9 Anemia, unspecified; Y83.3 Surgical operation with formation of external stoma as the cause of abnormal reaction of the patient, or of later complication, without mention of misadventure at the time of the procedure; K29.70 Gastritis, unspecified, without bleeding; Y73.3 Surgical instruments, materials and gastroenterology and urology devices (including sutures) associated with adverse incidents; Z66 Do not resuscitate; Z51.5 Encounter for palliative care; Z88.2 Allergy status to sulfonamides; Z88.0 Allergy status to penicillin; Z79.899 Other long term (current) drug therapy; Z79.01 Long term (current) use of anticoagulants; Z85.3 Personal history of malignant neoplasm of breast; Z87.11 Personal history of peptic ulcer disease
CPT/HCPCS: 31500; 36415; 36416; 36430; 36556; 36600; 51702; 70450; 71045; 71250; 74018; 74177; 80048; 80053; 80162; 80202; 80306; 80307; 81001; 82805; 83605; 83690; 83735; 83880; 84145; 84443; 84484; 85025; 85610; 85730; 86850; 86900; 86901; 87040; 87077; 87086; 87149; 87186; 88305; 88342; 93005; 93010; 94002; 94003; 94640; 96365; 96366; 96375; 97139; C9113; J0171; J0456; J0461; J0692; J0696; J1265; J1644; J1720; J1815; J1940; J2185; J2270; J2704; J2920; J3010; J3370; J3480; J3490; J7030; J7050; J7120; J7512; J7611; J7620; P9016; P9047; Q5105